=== PATIENT | male | born 1980 | race Caucasian/White ===

== ENCOUNTER 2019-04-27 08:15 | Emergency (ER) | payer OTHER ==
--- NOTE | 2019-04-27 09:00 | RAD ---
Exam: Chest one view HISTORY:Chest pain Comparison: None FINDINGS: Lungs: No masses or consolidation. Cardiac silhouette: Normal size Pulmonary vessels: Normal Pleural Spaces: Clear Pneumothorax: None Osseous abnormalities: None of acuity. IMPRESSION: No focal consolidation.
[2019-04-27 09:20] LABS: #Basophils 0.1 thou/uL (0.0-0.2); #Eosinphils 0.2 thou/uL (0.0-0.7); #Lymphocytes 2.3 thou/uL (1.20-3.40); #Monocytes 0.5 thou/uL (0.11-0.59); #Neutrophils 3.4 thou/uL (1.40-6.50); %Basophils 1.3 % (0.0-1.0); %Eosinophils 2.8 % (0.0-10.0); %Lymphocytes 35.8 % (21.0-51.0); %Monocytes 7.7 % (0.0-10.0); %Neutrophils 52.3 % (42.0-75.0); Hemoglobin 16.2 g/dL (14.0-18.0); Mean Corpuscular HGB CONC 34.3 g/dL (32.0-36.0); Mean Corpuscular Hemoglobin 30.6 pg (27.0-31.0); Mean Corpuscular Volume 89.1 fL (78.0-98.0); Mean Platelet Volume 7.3 fL (7.4-10.4); Platelet Count 223 thou/uL (130-400); RBC Distribution Width 11.5 % (11.5-14.5); Red Blood Cell (RBC) Count 5.28 mill/uL (4.70-6.10); White Blood Cell (WBC) Count 6.5 thou/uL (4.8-10.8)
[2019-04-27 09:37] LABS: ALT (SGPT) 31 U/L (8-55); AST (SGOT) 29 U/L (5-34); Albumin 4.9 g/dL (3.5-5.0); Alkaline Phosphatase 92 U/L (40-150); Anion Gap 15 mmol/L (10-20); BUN (Urea Nitrogen) 10 mg/dL (8.9-20.6); Bilirubin, Total 0.6 mg/dL (0.2-1.2); CK (CPK) 68 U/L (30-200); Calc. Creatinine Clearance 0 mL/min (70-130); Calcium 9.7 mg/dL (7.8-10.44); Carbon Dioxide 26 mmol/L (22-29); Chloride 102 mmol/L (98-107); Estimated GFR-MDRD Greater than 90; Globulin 2.8 g/dL (2.4-3.5); Glucose 87 mg/dL (70-105); Lipase 28 U/L (8-78); Potassium 4.7 mmol/L (3.5-5.1); Protein, Total 7.7 g/dL (6.0-8.3); Sodium 138 mmol/L (136-145)
--- NOTE | 2019-04-27 10:57 | CT ---
CT angiogram thorax with contrast CT angiogram abdomen with contrast: HISTORY: 38-year-old male with acute chest pain TECHNIQUE: IV injection of iodinated contrast. Arterial bolus chasing technique. Scan acquisition from top of aortic arch to iliac crests. 3-D MIP reconstructions. FINDINGS: There is no aortic dissection, aneurysm, rupture, or calcified atheromatous plaque. No pulmonary thromboembolism. No pleural effusion or pneumothorax. In the medial basilar portion of the left lower lobe, there is an approximately 9 x 5 x 6.5 cm region of hyperlucency, with a paucity of bronchovascular markings, except for a branching irregular shaped tubular structure, a portion of which is air-filled and other portions filled with soft tissue density material, nonvascular. At the inferior medial aspect of this hyperlucent abnormal lung parenchyma, there is a 1 x 0.3 similar focal coarse calcification. Trachea and major bronchi are klein nt and clear. No mediastinal or hilar lymphadenopathy. No cardiomegaly or pericardial effusion. Within the limitations of an arterial phase-only scan, no major pathology identified involving bilate ral kidneys, adrenals, pancreas, spleen, upper portions of colon, and upper portions of small intestine. Focal 1 cm subcapsular hypodense lesion at posterior edge of right lobe of liver at juncti on between hepatic segment 6 and 7, nonspecific. No other hepatic abnormality. No free fluid or free air within abdominal cavity. Pelvis not included. Normal appendix. Thoracic and lumbar vertebral body heights are maintained, with no compression fracture. No sternal or rib fracture. IMPRESSION: 1) normal aorta. 2) abnormal region of lung parenchyma and left lower lobe. 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 Exact etiology uncertain. Possi bilities include congenital lobar emphysema, congenital pulmonary adenomatoid malformation, etc.
[2019-04-27] MEDS ORDERED: ISOVUE-370 76%-LOCM 1 ML ONE (13:55)
--- NOTE | 2019-04-30 15:22 | EKG ---
Test Reason : Blood Pressure : / mmHG Vent. Rate : 069 BPM Atrial Rate : 069 BPM P-R Int : 144 ms QRS Dur : 098 ms QT Int : 392 ms P-R-T Axes : -12 052 057 degrees QTc Int : 420 ms Normal sinus rhythm Normal ECG Confirmed by MO KU DO ([id number]), supervising editor trailer JAYY TADEO ([id number]) on 04/30/2019 3:21:28 PM Referred By: Confirmed By:MO KU DO
== END 2019-04-27 12:04 | disposition home or self-care (01) ==
LOC: ERS 08:15
DX: R07.9 Chest pain, unspecified (principal); F17.210 Nicotine dependence, cigarettes, uncomplicated
CPT/HCPCS: 36415; 71045; 71275; 80053; 82550; 83690; 84484; 85025; 93005; Q9966